=== PATIENT | male | born 1995 | race Two or more races ===

== ENCOUNTER 2018-12-23 09:33 | Emergency (ER) | payer SELFPAY ==
[~2018-12-23] VITALS: Ht 160 cm; Wt 73.0 kg
[2018-12-23] MEDS ORDERED: HYDROGEN PEROXIDE 118 ML SOLUTION TP ONE (12:30)
[2018-12-23 14:21] VITALS: BP 119/79
== END 2018-12-23 14:24 | disposition home or self-care (01) ==
LOC: EMS 09:36 → EDBD 09:36 → EMS 14:24
DX: H61.23 Impacted cerumen, bilateral (principal)
CPT/HCPCS: 69209

== ENCOUNTER 2021-02-24 18:27 | Emergency (ER) | payer SELFPAY ==
[~2021-02-24] VITALS: Ht 157.5 cm; Wt 72.7 kg
[2021-02-24 18:30] VITALS: BP 119/75
[2021-02-24] MEDS ORDERED: FLUORESCEIN SODIUM 1 MG STRIP ONE (20:53)
== END 2021-02-24 21:29 | disposition home or self-care (01) ==
LOC: EMS 18:29
DX: H61.21 Impacted cerumen, right ear (principal)
CPT/HCPCS: 69210; 99284; Z7502; Z7610

== ENCOUNTER 2022-09-21 08:42 | Emergency (ER) | payer SELFPAY ==
[~2022-09-21] VITALS: Ht 167.6 cm; Wt 68.2 kg
[2022-09-21] MEDS ORDERED: IBUPROFEN 600 MG TABLET PO ONE (09:15)
[2022-09-21] MEDS ORDERED: DEXAMETHASONE SOD PHOS 4 MG/ML 5 ML VIAL IM ONE (09:15)
[2022-09-21 09:34] LABS: COVID AG,FIA SOURCE NASOPHARYNGEAL
[2022-09-21] MEDS ORDERED: ERYT3.5O8 OU (10:07)
[2022-09-21] MEDS ORDERED: IBUP-1492 PO (10:07)
[2022-09-21 10:31] VITALS: BP 129/78
== END 2022-09-21 10:30 | disposition home or self-care (01) ==
LOC: EMS 08:53
DX: J02.8 Acute pharyngitis due to other specified organisms (principal); H10.9 Unspecified conjunctivitis; Z20.822 Contact with and (suspected) exposure to COVID-19
CPT/HCPCS: 99283; 87426; 87430; 96372; J1100

== ENCOUNTER 2022-12-01 06:58 | Emergency (ER) | payer SELFPAY ==
[~2022-12-01] VITALS: Ht 157.5 cm; Wt 73.0 kg
[~2022-12-01 06:58] MED LIST: ERYT3.5O8 OU; IBUP-1492 PO
[2022-12-01 07:03] VITALS: BP 125/81
[2022-12-01] MEDS ORDERED: POLYMYXIN B/TRIMETHOPRIM 10 ML OPHTHALMIC SOLUTION OD ONE (08:15)
== END 2022-12-01 09:05 | disposition home or self-care (01) ==
LOC: EMS 06:59
DX: H10.9 Unspecified conjunctivitis (principal)
CPT/HCPCS: 99281; Z7502; Z7610

== ENCOUNTER 2024-04-17 13:07 | Emergency (ER) | payer MEDICAID ==
[~2024-04-17] VITALS: Ht 167.6 cm; Wt 86.4 kg
[2024-04-17 13:08] VITALS: TEMP 98.2
[2024-04-17] MEDS: MethylPREDNISolone SOD SUCC 125 MG/2 ML VIAL IM ONE (14:17)
[2024-04-17] MEDS: DiphenhydrAMINE HCL 50 MG/ML VIAL IM ONE (14:17)
[2024-04-17 14:58] VITALS: BP 115/75; PULSE 68; RESP 16; O2SAT 100
[2024-04-17] MEDS ORDERED: PRED-554 PO (15:14)
[2024-04-17] MEDS ORDERED: DIPH50CA37 PO (15:14)
== END 2024-04-17 15:36 | disposition home or self-care (01) ==
LOC: EMS 13:07
DX: L50.0 Allergic urticaria (principal)
CPT/HCPCS: 99284; 96372; J1200; J2919

== ENCOUNTER 2024-05-03 22:08 | Emergency (ER) | payer MEDICAID ==
[~2024-05-03] VITALS: Ht 167.6 cm; Wt 86.4 kg
[~2024-05-03 22:08] MED LIST changes: +DIPH50CA37 PO; -ERYT3.5O8 OU; -IBUP-1492 PO; +PRED-554 PO
[2024-05-03 22:18] VITALS: BP 144/84; PULSE 75; RESP 16; TEMP 97.4; O2SAT 100
== END 2024-05-04 02:00 | disposition left against medical advice (07) ==
LOC: EMS 22:08
DX: R21 Rash and other nonspecific skin eruption (principal); Z53.21 Procedure and treatment not carried out due to patient leaving prior to being seen by health care provider